=== PATIENT | male | born 1935 | race Native Hawaiian/Other Pacific Islander ===

== ENCOUNTER → 2016-12-07 | Outpatient (CLI) | payer MEDICARE, BC ==
--- NOTE | 2016-12-08 09:17 | RADIOLOGY REPORT (SQ) ---
EXAM DESCRIPTION: MRI RT LOWER JOINT WITHOUT COMPLETED DATE/TIME: 12/07/2016 4:13 pm REASON FOR STUDY: EFFUSION, RIGHT KNEE M25.461 EFFUSION, RIGHT KNEE COMPARISON: None. TECHNIQUE: Rightknee images acquired and stored on PACS. Multiplanar images include fat sensitive s equences as T1, water sensitive sequences as FST2 or STIR, cartilage sensitive sequences as FSPD, and gradient echo sequences. LIMITATIONS: None. FINDINGS: JOINT AND BURSAE: Moderate suprapatellar knee joint effusion. 3 x 1 cm Brown's cyst BONE CORTEX AND MARROW: No alteration of signal to suggest marrow replacement. No worrisome bone lesi ons. No occult fracture. ACL: Torn, best shown on sagittal image 10 through 13. PCL: Intact. MCL: Intact. No periligamentous edema or fluid. LCL: Intact. No periligamentous edema or fluid. MEDIAL MENISCUS: Increased intrameniscal signal is present without a discrete tear or parameniscal cy st. LATERAL MENISCUS: Increased intravenous meniscal signal is present without a discrete tear or paramen iscal cyst MEDIAL COMPARTMENT: High-grade chondromalacia throughout the medial compartment, with medial edge tib ial plateau and femoral condyle bony edema and mild bony spurring best shown on coronal images 14-19 LATERAL COMPARTMENT: Moderate chondromalacia. No bone bruises or reactive marrow edema. No osteophyte s. PATELLA: Moderate midline patellar chondromalacia. No subchondral cysts. Medial and lateral retinacul a intact. EXTENSOR MECHANISM: Patellar tendon is unremarkable. There is a bony spurring along the superior pat ellar margin at the quadriceps tendon attachment. Mild increased signal of the distal quadriceps ten don is seen on sagittal image 9, question mild tendinopathy in this area SOFT TISSUES: Adjacent muscles and subcutaneous tissues normal. Normal flow void in popliteal artery and vein. OTHER: No other significant finding. 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
== END ==
LOC: RAD 14:58
PROVIDERS: ATTEND Internal Medicine
DX: M25.461 Effusion, right knee (principal); M17.11 Unilateral primary osteoarthritis, right knee

== ENCOUNTER 2017-05-07 10:37 | Day surgery (SDC) | payer MEDICARE, BC ==
--- NOTE | 2017-05-06 14:34 | HISTORY AND PHYSICAL E ---
History and Physical NAME: MARY CLAY : 1935 AGE: 81Y ADMITTED: 05/07/2017 ROOM: HISTORY OF PRESENT ILLNESS: Patient is known to me since the year 1990 where he did have colonoscopy showing rectal polyps. Another colonoscopy in 1996 shows rectal polyps resected. He did have diverticulum in the descending colon. The patient presented at this time regarding colonoscopy. CT of the chest shows osteophytes, thoracic. The patient did have another colonoscopy 2006 which showed colorectal polyps. The patient did have biopsy of cecum and rectum. The biopsy came back adenoma polyp of cecum and rectum 2006. Another colonoscopy 2010. Colonoscopy, polypectomy. He did have sessile polyp 1/2 cm resected. MEDICATIONS: 1. Synthroid. 2. Flomax. 3. He does use BiPAP machine at bedtime. 4. Vitamin B12. 5. Folic acid. 6. Thiamine. 7. CoQ10. 8. Lisinopril. 9. Metoprolol. PHYSICAL EXAMINATION: GENERAL: Pleasant, alert, oriented. VITAL SIGNS: Blood pressure 120/70, pulse 80, respirations 18, temp is 98. HEAD,EYES, EARS, NOSE, THROAT: Normal. ABDOMEN: Soft. NEUROLOGIC: Negative. Colonoscopy 2013 showing diverticulosis. Rectosigmoid diminutive polyps. No adenoma. CONCLUSION: Patient for colon screening. History of polyps. PLAN: Colonoscopy. DICTATING PHYSICIAN: ALESHIA ELLINGTON M.D. [id number] PHY#: [id number] ID: [id number] JOB#: [id number] ACCT: [id number] cc:ALESHIA ELLINGTON M.D. >
[~2017-05-07 10:37] MED LIST: EPINEPHRINE INJ 1 MG/10 ML DISP.SYRIN ONE; FENTANYL CITRATE INJ/PF 100 MCG/2 ML AMPUL ONE; FLUMAZENIL INJ 0.5 MG/5 ML VIAL ONE; GLUCAGON,HUMAN RECOMB 1 MG INJ ONE; GLYCOPYRROLATE INJ 0.4 MG/2 ML VIAL ONE; MIDAZOLAM 2 MG/2 ML INJ ONE; NALOXONE HCL INJ/PF 0.4 MG/1 ML SDV ONE; ONDANSETRON HCL INJ/PF 4 MG/2 ML SDV ONE
[2017-05-07 12:35] VITALS: BP 136/69
--- NOTE | 2017-05-07 13:05 | OPERATIVE REPORT E ---
Operative Report NAME: MARY CLAY : 1935 AGE: 81Y DATE OF SURGERY: ROOM: PREOPERATIVE DIAGNOSES: 1. History of diverticulosis. 2. History of adenomatous polyps. OPERATION: Colonoscopy. SURGEON: ALESHIA ELLINGTON M.D. ANESTHESIA: Versed 2, fentanyl 50. TISSUE REMOVED OR ALTERED: None. INDICATION FOR PROCEDURE: Patient did have multiple colonoscopies. Last colonoscopy was done in 2010 and showed sessile polyp adenoma, cecum, 0.5 cm. Polyp resected in 2010. PREOPERATIVE HISTORY: Polyps. Last polypectomy was done in 2010. Now patient for followup for history of polyps. PROCEDURE: Rectal exam was normal. Sigmoid diverticulosis, severe. Descending colon normal. Transverse colon normal. Ascending colon normal. Cecum normal. Ileocecal valve intubated, looks normal. Scope withdrawn. Cecum, ascending, transverse, descending and sigmoid all the way to the rectum. Patient had a moderate amount of full liquid stool, left colon, right colon. Lavage, flushing, lavage, flushing again. Cecum, ascending, no polyps seen. Moderate amount of full liquid stool in transverse colon. No polyps. Descending, sigmoid, severe diverticulosis. Rectum normal. CONCLUSION: No bleeding, no malignancy, no significant polyps seen. PLAN: Assurance. Continue present management. I will obtain baseline CBC and CEA. Patient to see us in the office in the next few days. DICTATING PHYSICIAN: ALESHIA ELLINGTON M.D. [id number] PHY#: [id number] ID: [id number] JOB#: [id number] ACCT: [id number] cc:ALESHIA ELLINGTON M.D. >
[2017-05-07 13:13] LABS: ABSOLUTE EOSINOPHILS # (AUTO) 0.1 10^3/uL (0.0-0.6); ABSOLUTE LYMPHOCYTES (AUTO) 0.8 10^3/uL (0.5-4.7); ABSOLUTE MONOCYTES (AUTO) 0.8 10^3/uL (0.1-1.4); ABSOLUTE NEUT (AUTO) 4.9 10^3/uL (1.7-8.2); BASOPHILS % (AUTO) 0.2 % (0-2); EOSINOPHILS % (AUTO) 1.9 % (0-6); HEMATOCRIT 38.7 % (37.9-51.0); HEMOGLOBIN 13.5 g/dL (13.5-17.0); HGB HCT DIFFERENCE 1.8; LYMPHOCYTES % (AUTO) 12.5 % (13-45); MEAN CORPUSCULAR VOLUME 95 fl (80-97); MONOCYTES % (AUTO) 12.4 % (3-13); RED CELL DISTRIBUTION WIDTH 14.4 % (11.5-14.0); WHITE BLOOD COUNT 6.7 10^3/uL (4.0-10.5)
--- NOTE | 2017-05-07 14:31 | DISCHARGE SUMMARY E ---
Discharge Summary NAME: MARY CLAY : 1935 AGE: 81Y ADMITTED: 05/07/2017 DISCHARGED: 05/07/2017 HISTORY: The patient is an 81-year-old male who presented with history of polyps. Last colonoscopy 2010; polypectomy, adenoma, sessile polyp resected. Today's colonoscopy was successful to the cecum. Prep was inadequate, but with lavage and flushing, I took basically a good look and I did not see any significant polyps or any malignancy. DISCHARGE PLAN: CBC, CEA. Consider followup colonoscopy in 3 to 5 years, with better prep. DICTATING PHYSICIAN: ALESHIA ELLINGTON M.D. [id number] PHY#: [id number] ID: [id number] JOB#: [id number] ACCT: [id number] cc:ALESHIA ELLINGTON M.D. >
== END 2017-05-07 12:23 | disposition home or self-care (01) ==
LOC: END 10:37
PROVIDERS: ATTEND Specialist
PROC: 0DJD8ZZ Inspection of Lower Intestinal Tract, Via Natural or Artificial Opening Endoscopic (ICD-10-PCS; principal; 2017-05-07 11:00)
DX: Z12.11 Encounter for screening for malignant neoplasm of colon (principal); K57.30 Diverticulosis of large intestine without perforation or abscess without bleeding; R97.0 Elevated carcinoembryonic antigen [CEA]; Z79.899 Other long term (current) drug therapy
CPT/HCPCS: 36415; 82378; 85025; G0121; J2250; J3010; J1610; J2405; 45378; J0171; J2310; J3490

== ENCOUNTER → 2017-08-03 | Outpatient (CLI) | payer MEDICARE, BC ==
--- NOTE | 2017-08-04 09:41 | RADIOLOGY REPORT (SQ) ---
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 RADIONUCLIDE AND DOSE: 11.7 mCi F18 FDG The route of agent administration: Intravenous FASTING BLOOD SUGAR: 90 mg/dl CONTRAST TYPE AND DOSE: No CT contrast given. TECHNIQUE: Blood glucose level was verified. Above dose of FDG was injected intravenously. 2-D seg mented attenuation correction images were obtained from the base of the skull to the midthighs. Nonc ontrast CT images were obtained for attenuation correction and fusion with emission images. CT image s were performed without oral or intravenous contrast and are not sensitive for parenchymal lesions. A series of overlapping emission PET images were obtained. Images reviewed and manipulated at [facility] work station by the radiologist. Images stored on PACS. LIMITATIONS: None. FINDINGS: HEAD AND NECK: No areas of abnormal metabolic activity in the soft tissues of the head and neck. CHEST: Increased metabolic activity 11.4 SUV associated with thickening of the thoracic esophagus ext ending from just inferior to the level of the jaja distally, with sparing of the gastroesophageal j unction. Increased uptake measuring 7.4 SUV within a level 8 left paraesophageal lymph node measurin g 1.8 cm in diameter. ABDOMEN AND PELVIS: No areas of abnormal metabolic activity in the abdomen or pelvis. Expected physi ologic activity is present in the genitourinary system and bowel. PROXIMAL LOWER EXTREMITIES: No areas of abnormal metabolic activity in the soft tissues of the lower extremities. BONES: No abnormal metabolic activity in the visualized skeleton. ADDITIONAL CT FINDINGS: No additional significant findings on the noncontrast CT images. OTHER: No other significant findings. IMPRESSION: Hypermetabolic primary lesion in the thoracic esophagus. Hypermetabolic adjacent level 8 paraesophageal lymph node. No evidence of metastatic disease below the diaphragm. TECHNICAL DOCUMENTATION: JOB ID: [id number] [employer]- All Rights Reserved
== END ==
LOC: RAD 17:54
PROVIDERS: ATTEND Internal Medicine
DX: C15.4 Malignant neoplasm of middle third of esophagus (principal)
CPT/HCPCS: 78815; A9552